=== PATIENT | female | born 1995 | race Caucasian/White ===

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

== ENCOUNTER 2017-12-02 12:52 | Emergency (ER) | END 2017-12-02 17:09 | disposition home or self-care (01) ==

== ENCOUNTER 2018-03-21 01:46 | Emergency (ER) | END 2018-03-21 02:56 | disposition home or self-care (01) ==